=== PATIENT | female | born 1985 | race Caucasian/White ===

== ENCOUNTER 2016-11-03 17:11 | Emergency (ER) | payer OTHER ==
[~2016-11-03] VITALS: Ht 170.2 cm; Wt 108.9 kg
--- NOTE | ~2016-11-03 | EKG ---
[address] [address] ELECTROCARDIOGRAM REPORT Name: CHONG PICKERING Room #: [facility]..#: [id number] Admission: Attend Phys: Discharge: Date of : 87 Report #: [id number] THIS REPORT FOR: //name// [facility] ED Test Date: 2016-11-03 Test Time: 17:17:23 Pat Name: CHONG PICKERING Department: Room: Gender: F [employer]: Francisco J VASQUEZ : 1985 Requested By: Amy Boggs Order Number: [id number] MD: Measurements Intervals [place] Rate: 99 P: 20 [place]: 142 QRS: 37 QRSD: 84 T: 23 QT: 361 QTc: 464 Interpretive Statements Sinus rhythm No previous ECG available for comparison [email or web address] By: 16 16 Epiphany MD Judith /EPI
[~2016-11-03 17:11] MED LIST: BIRTH CONTROL PILL; GLUCOPHAGE500 MG; NORCO 5-325 TA1 EACH PO
[2016-11-03 17:30] LABS: URINE BILIRUBIN NEGATIVE (Negative); URINE BLOOD NEGATIVE (Negative); URINE COLOR YELLOW; URINE GLUCOSE-RANDOM* NEGATIVE (Negative); URINE KETONES NEGATIVE (Negative); URINE NITRITE NEGATIVE (Negative); URINE PROTEIN (DIPSTICK) NEGATIVE (Negative); URINE UROBILINOGEN 0.2 E.U./dl (0.2-1.0)
[2016-11-03 17:44] LABS: ABSOLUTE NEUTROPHILS 7.2 thou/uL (1.4-8.2); BASOPHILS 1.1 % (0.0-2.0); EOSINOPHILS 2.9 % (0.0-3.0); HEMATOCRIT 43.3 % (37.0-47.0); HEMOGLOBIN 15.2 gm/dL (12.0-15.0); LYMPHOCYTES 26.1 % (24.0-44.0); MCH 29.4 pg (26.0-34.0); MCHC 35.2 g/dL (28.0-37.0); MCV 83.5 fL (80.0-100.0); MONOCYTES 5.6 % (1.0-8.0); PLATELET COUNT 271 thou/uL (150-400); POLYS 64.3 % (36.0-66.0); RBC 5.19 mil/uL (4.20-5.00); WBC 11.2 thou/uL (4.0-11.0)
[2016-11-03 17:45] LABS: MANUAL DIFF NO
[2016-11-03 17:52] LABS: ANION GAP 10 mmol/L (7-16); BUN 10 mg/dL (7-18); CALCIUM 9.3 mg/dL (8.5-10.1); CHLORIDE 102 mmol/L (98-107); CO2 26 mmol/L (21-32); CREATININE 0.7 mg/dL (0.6-1.3); GLUCOSE 81 mg/dL (70-99); SODIUM 138 mmol/L (136-145)
[2016-11-03 18:00] LABS: TROPONIN-I < 0.04 ng/mL (<0.04-0.07)
[2016-11-03] MEDS ORDERED: NORCO 5-325 TA1 EACH PO (18:33)
[2016-11-03 18:40] VITALS: BP 112/71
== END 2016-11-03 18:40 | disposition home or self-care (01) ==
LOC: ER 17:11
PROVIDERS: Emergency Medicine
DX: R09.1 Pleurisy (principal); R07.89 Other chest pain; E28.2 Polycystic ovarian syndrome; F17.210 Nicotine dependence, cigarettes, uncomplicated